=== PATIENT | male | born 1960 | race Caucasian/White ===

== ENCOUNTER 2016-10-15 15:20 | Emergency (ER) | payer SELFPAY ==
--- NOTE | 2016-10-15 16:17 | ER Document Report ---
HPI - HPI Patient complains to provider of: Medication refill Onset: Yesterday Quality of pain: No pain Pain Level: 0 Context: Patient presents emergency department with request for blood pressure medication refill. He reports he takes clonidine 0.2 mg 3 times a day. He presents with his medication bottle that is empty, last do yesterday. he reports he does not have the money to pay the urgent care to obtain a refill on his medication. He reports hes been taking the medication for a long time. Associated Symptoms: None Exacerbated by: Denies Relieved by: Denies Similar symptoms previously: Yes Recently seen / treated by doctor: No - DERM Skin Color: Normal Past Medical History - General Information source: Patient - Social History Smoking Status: Current Every Day Smoker Cigarette use (# per day): Yes Frequency of alcohol use: None Drug Abuse: None Family History: Hypertension - Past Medical History Cardiac Medical History: Reports: Hx Hypertension Pulmonary Medical History: Denies: Hx Tuberculosis Neurological Medical History: Denies: Hx Seizures Renal/ Medical History: Denies: Hx Peritoneal Dialysis Psychiatric Medical History: Denies: Hx Depression Past Surgical History: Reports: Hx Orthopedic Surgery - right hand, left knee - Immunizations Hx Diphtheria, Pertussis, Tetanus Vaccination: Yes Vertical Provider Document - CONSTITUTIONAL Agree With Documented VS: Yes Exam Limitations: No Limitations General Appearance: WD/WN, No Apparent Distress - INFECTION CONTROL TRAVEL OUTSIDE OF THE [place] IN LAST 30 DAYS: No - HEENT HEENT: Atraumatic, Normocephalic - NECK Neck: Normal Inspection, Supple. negative: Lymphadenopathy-Left, Lymphadenopathy-Right - RESPIRATORY Respiratory: Breath Sounds Normal, No Respiratory Distress O2 Sat by Pulse Oximetry: 96 - CARDIOVASCULAR Cardiovascular: Regular Rate, Regular Rhythm - MUSCULOSKELETAL/EXTREMETIES Musculoskeletal/Extremeties: MAEW, FROM - NEURO Level of Consciousness: Awake, Alert, Appropriate Motor/Sensory: No Motor Deficit - DERM Integumentary: Warm, Dry Course - Re-evaluation Re-evalutation: 10/15/16 16:24 Patient educated on the [facility]. We discussed the importance of monitoring his blood pressure and taking medications as prescribed. He verbalized understanding to all instructions. - Vital Signs Vital signs: Temp Pulse Resp BP Pulse Ox 97.8 F 55 L 18 150/91 H 96 10/15/16 15:49 10/15/16 15:49 10/15/16 15:49 10/15/16 15:49 10/15/16 15:49 Discharge - Discharge Clinical Impression: Medication refill, Elevated blood pressure reading Condition: Stable Disposition: HOME, SELF-CARE Instructions: Clonidine (Catapres) ([facility]) Additional Instructions: *You have been evaluated for medication refill, elevated blood pressure *Follow up with a primary care provider for further evaluation and refills *Take medication as prescribed *Return to ED for worsening condition, changes, needs Prescriptions: Clonidine HCl 0.2 mg PO TID #30 tablet Forms: Elevated Blood Pressure
[2016-10-15 16:37] VITALS: BP 119/86
== END 2016-10-15 16:37 | disposition home or self-care (01) ==
LOC: ER 15:20
DX: Z76.0 Encounter for issue of repeat prescription (principal); R03.0 Elevated blood-pressure reading, without diagnosis of hypertension; F17.210 Nicotine dependence, cigarettes, uncomplicated
CPT/HCPCS: 99281

== ENCOUNTER → 2016-12-07 | Outpatient (CLI) | payer OTHER ==
[2016-12-07 12:24] LABS: ABSOLUTE EOSINOPHILS # (AUTO) 0.1 10^3/uL (0.0-0.6); ABSOLUTE LYMPHOCYTES (AUTO) 2.1 10^3/uL (0.5-4.7); ABSOLUTE MONOCYTES (AUTO) 0.7 10^3/uL (0.1-1.4); ABSOLUTE NEUT (AUTO) 5.6 10^3/uL (1.7-8.2); BASOPHILS % (AUTO) 0.4 % (0-2); EOSINOPHILS % (AUTO) 1.2 % (0-6); HEMATOCRIT 46.8 % (37.9-51.0); HEMOGLOBIN 15.4 g/dL (13.5-17.0); HGB HCT DIFFERENCE -0.6; LYMPHOCYTES % (AUTO) 24.6 % (13-45); MEAN CORPUSCULAR HEMOGLOBIN 30.1 pg (27.0-33.4); MEAN CORPUSCULAR VOLUME 91 fl (80-97); MONOCYTES % (AUTO) 7.8 % (3-13); RED BLOOD COUNT 5.12 10^6/uL (4.35-5.55); RED CELL DISTRIBUTION WIDTH 13.3 % (11.5-14.0); WHITE BLOOD COUNT 8.5 10^3/uL (4.0-10.5)
--- NOTE | 2016-12-07 12:25 | RADIOLOGY REPORT (SQ) ---
EXAM DESCRIPTION: KNEE RIGHT 4 VIEWS COMPLETED DATE/TIME: 12/07/2016 11:53 am REASON FOR STUDY: PAIN IN RIGHT KNEE M25.561 PAIN IN RIGHT KNEE M25.562 PAIN IN LEFT KNEE COMPARISON: None. NUMBER OF VIEWS: Four views. TECHNIQUE: AP, lateral, and both oblique radiographic images acquired of the right knee. LIMITATIONS: None. FINDINGS: MINERALIZATION: Normal. BONES: No acute fracture or dislocation. No worrisome bone lesions. JOINT: No suprapatellar knee joint effusion. Mild diffuse chondrocalcinosis without significant join t space narrowing. SOFT TISSUES: No soft tissue swelling. No radio-opaque foreign body. OTHER: No other significant finding. IMPRESSION: Chondrocalcinosis. No significant joint space narrowing or bulky bony spurring TECHNICAL DOCUMENTATION: JOB ID: [id number] [employer]- All Rights Reserved
--- NOTE | 2016-12-07 12:27 | RADIOLOGY REPORT (SQ) ---
EXAM DESCRIPTION: KNEE LEFT 4 VIEWS COMPLETED DATE/TIME: 12/07/2016 11:53 am REASON FOR STUDY: PAIN IN LEFT KNEE M25.561 PAIN IN RIGHT KNEE M25.562 PAIN IN LEFT KNEE COMPARISON: None. NUMBER OF VIEWS: Four views. TECHNIQUE: AP, lateral, and both oblique radiographic images acquired of the left knee. LIMITATIONS: None. FINDINGS: MINERALIZATION: Normal. BONES: No acute fracture or dislocation. No worrisome bone lesions. JOINT: Small suprapatellar knee joint effusion. Medial and lateral compartment chondrocalcinosis wit h mild medial compartment bony spurring SOFT TISSUES: No soft tissue swelling. No radio-opaque foreign body. OTHER: No other significant finding. IMPRESSION: Small left suprapatellar knee joint effusion. Chondrocalcinosis. TECHNICAL DOCUMENTATION: JOB ID: [id number] [employer]- All Rights Reserved
[2016-12-07 12:48] LABS: ALANINE AMINOTRANSFERASE 34 U/L (21-72); ALBUMIN 4.1 g/dL (3.5-5.0); ALKALINE PHOSPHATASE 54 U/L (38-126); ANION GAP 9 (5-19); ASPARTATE AMINO TRANSFERASE 29 U/L (17-59); BILIRUBIN,DIRECT 0.3 mg/dL (0.0-0.4); BILIRUBIN,TOTAL 1.5 mg/dL (0.2-1.3); BLOOD UREA NITROGEN 18 mg/dL (7-20); CALCIUM 9.6 mg/dL (8.4-10.2); CARBON DIOXIDE 28 mmol/L (22-30); CHLORIDE 101 mmol/L (98-107); CHOLESTEROL 182.02 mg/dL (0-200); CREATININE RESULT 1.02 mg/dL (0.52-1.25); Direct HDL 52 mg/dL (>40); GLUCOSE 91 mg/dL (75-110); POTASSIUM 4.9 mmol/L (3.6-5.0); SODIUM 137.6 mmol/L (137-145); TRIGLYCERIDES 69 mg/dL (<150)
[2016-12-07 12:59] LABS: DIRECT LDL 121 mg/dL (<100)
== END ==
LOC: CCC 11:07
DX: Z00.00 Encounter for general adult medical examination without abnormal findings (principal); M25.561 Pain in right knee; M25.562 Pain in left knee; M25.462 Effusion, left knee; M11.161 Familial chondrocalcinosis, right knee
CPT/HCPCS: 36415; 80053; 80061; 83036; 84153; 84443; 85025

== ENCOUNTER 2017-02-06 02:54 | Emergency (ER) | payer SELFPAY ==
[2017-02-06] MEDS ORDERED: HYDROCODONE/ACETAMINOPHEN 5-325 MG TABLET PO ONE (03:47)
[2017-02-06] MEDS ORDERED: DEXAMETHASONE SOD PHOS INJ 10 MG/1 ML VIAL IM ONE (03:47)
[2017-02-06] MEDS ORDERED: KETOROLAC TROMETHAMINE 60 MG/2 ML SDV IM ONE (03:47)
--- NOTE | 2017-02-06 03:53 | ER Document Report ---
ED Neck/Back Problem - General Chief Complaint: Back Pain Stated Complaint: BACK PAIN Time Seen by Provider: 02/06/17 03:30 Notes: The patient is a 56-year-old male, past medical history prior back injury many years ago, presents with 3 days of bilateral low back pain and 1 day of tingling down the back of his left leg. He was lifting heavy objects recently. He denies difficulty walking, saddle anesthesia, history of IVDA, fevers, change in bowel or bladder, abdominal pain, chest pain or shortness of breath. TRAVEL OUTSIDE OF THE [place] IN LAST 30 DAYS: No - Related Data Allergies/Adverse Reactions: pantoprazole sodium [From Protonix] Adverse Reaction (Intermediate, Verified 05/13 03:16) Migraine Past Medical History - General Information source: Patient - Social History Smoking Status: Current Every Day Smoker Family History: Hypertension Patient has suicidal ideation: No Patient has homicidal ideation: No - Past Medical History Cardiac Medical History: Reports: Hx Hypertension Pulmonary Medical History: Denies: Hx Tuberculosis Neurological Medical History: Denies: Hx Seizures Renal/ Medical History: Denies: Hx Peritoneal Dialysis Psychiatric Medical History: Denies: Hx Depression Past Surgical History: Reports: Hx Orthopedic Surgery - right hand, left knee - Immunizations Hx Diphtheria, Pertussis, Tetanus Vaccination: Yes Review of Systems - Review of Systems Notes: REVIEW OF SYSTEMS: CONSTITUTIONAL: -fevers, -chills EENT: -eye pain, -difficulty swallowing, -nasal congestion CARDIOVASCULAR:-chest pain, -syncope. RESPIRATORY: -cough, -SOB GASTROINTESTINAL: -abdominal pain, - nausea, -vomiting, -diarrhea GENITOURINARY: -dysuria, -hematuria MUSCULOSKELETAL: +back pain, -neck pain SKIN: -rash or skin lesions. HEMATOLOGIC: -easy bruising or bleeding. LYMPHATIC: -swollen, enlarged glands. NEUROLOGICAL: -altered mental status or loss of consciousness, -headache, + tingling down back of left leg PSYCHIATRIC: -anxiety, -depression. ALL OTHER SYSTEMS REVIEWED AND NEGATIVE. Physical Exam - Vital signs Vitals: Temp Pulse Resp BP Pulse Ox 97.6 F 63 22 H 139/111 H 100 02/06/17 03:14 02/06/17 03:14 02/06/17 03:14 02/06/17 03:14 02/06/17 03:14 - Notes Notes: PHYSICAL EXAMINATION: GENERAL: Uncomfortable. HEAD: Atraumatic, normocephalic. EYES: Pupils equal round and reactive to light, extraocular movements intact, sclera anicteric, conjunctiva are normal. ENT: nares patent, oropharynx clear without exudates. Moist mucous membranes. NECK: Normal range of motion, supple without lymphadenopathy LUNGS: Breath sounds clear to auscultation bilaterally and equal. No wheezes rales or rhonchi. HEART: Regular rate and rhythm without murmurs ABDOMEN: Soft, nontender, normoactive bowel sounds. No guarding, no rebound. No masses appreciated. EXTREMITIES: Normal range of motion, no pitting or edema. No cyanosis. Strong distal pulses. BACK: Tenderness over left lower back, no midline tenderness. NEUROLOGICAL: Cranial nerves grossly intact. Normal speech, normal gait. Normal motor exams. PSYCH: Normal mood, normal affect. SKIN: Warm, Dry, normal turgor, no rashes or lesions noted. Course - Re-evaluation Re-evalutation: Patient presents with worsening low back pain with left sciatica symptoms. No red flag signs for low back pain. Will provide a multimodal approach to help his low back pain with follow-up his primary care physician. - Vital Signs Vital signs: Temp Pulse Resp BP Pulse Ox 97.6 F 63 22 H 139/111 H 100 02/06/17 03:14 02/06/17 03:14 02/06/17 03:14 02/06/17 03:14 02/06/17 03:14 Discharge - Discharge Clinical Impression: Back pain Qualifiers: Back pain location: low back pain Chronicity: unspecified Back pain laterality : left Sciatica presence: with sciatica Sciatica laterality: sciatica of left side Qualified Code(s): M54.42 - Lumbago with sciatica, left side Condition: Stable Disposition: HOME, SELF-CARE Additional Instructions: LOW BACK PAIN: Three out of every four people will have an episode of disabling back pain during their lifetime. Most commonly the pain is due to straining of the muscles and ligaments in the low back. Usual treatment includes: (1) Rest on a firm surface. Avoid lying on your stomach. (2) Ice pack the painful area. After a few days, gentle heat may be used intermittently to relax the area, or ice packs can be continued. (3) Medication may be needed -- muscle relaxers and antiinflammatory medicines are commonly used. (4) As the back improves, exercises are prescribed to strengthen the back and abdominal muscles. Your doctor will advise you on the proper care for your back at each stage in your recovery. You may be better in a few days -- or healing may take several weeks. If new symptoms of a "herniated disc" (radiation of pain, numbness, or tingling down the back of the leg or weakness in the leg) occur, you should be re-examined. Further testing may be necessary. PAIN MEDICATION INJECTION: You have received an injection of a pain medication. You should experience significant pain relief within 45 minutes. If this injection was a narcotic -- it will impair your judgement, slow your reaction time and make you sleepy (as well as relieve your pain). Narcotics also can cause nausea. You should not drive, work with machinery, or perform any task requiring mental alertness until all effects of the medication are gone -- six to eight hours. Do not take any alcohol, or sedatives, and do not take any other medication without checking with your physician. ORAL NARCOTIC MEDICATION: You have been given a prescription for pain control. This medication is a narcotic. It's best taken with food, as nausea can result if taken on an empty stomach. Don't operate machinery or drive within six hours of taking this medication. Do not combine this medicine with alcohol, or with any medication which can cause sedation (such as cold tablets or sleeping pills) unless you get permission from the physician. Narcotics tend to cause constipation. If possible, drink plenty of fluids and eat a diet high in fiber and fruits. Please be aware that prescription narcotics also have the potential for abuse. People become addicted to these medications because of the general sense of wellbeing that they induce. This feeling along with a significant reduction in tension, anxiety, and aggression provides a stimulating seductive quality to these drugs. Once your pain is under control, we encourage you to discard your unused narcotics. ICE PACKS: Apply ice packs frequently against the painful area. Many different schedules are recommended, such as "20 minutes on, 20 minutes off" or "one hour ice, two hours rest." If you need to work, you may need to go longer between ice treatments. You should plan to have the area ice packed AT LEAST one fourth of the time. The ice should be applied over the wrap, tape, or splint, or over a layer of cloth -- not directly against the skin. Some ice bags have a built-in cloth and can be put directly on the skin. WARM PACKS: After approximately two days, apply gentle heat (such as a heating pad or hot water bottle) for about 20 to 30 minutes about every two hours -- at least four times daily. Warmth and elevation will help you make a more rapid recovery , and will ease the pain considerably. Do not use HOT heat, and never apply heat for longer than 30 minutes. The continuous heat can invisibly damage skin and muscles -- even when no burn is seen on the surface. Damaged muscles can make you MORE sore. FOLLOW-UP CARE: If you have been referred to a physician for follow-up care, call the physician s office for an appointment as you were instructed or within the next two days. If you experience worsening or a significant change in your symptoms, notify the physician immediately or return to the Emergency Department at any time for re-evaluation. Prescriptions: Hydrocodone/Acetaminophen [Victor 5-325 mg Tablet] 1 tab PO Q6H PRN #10 tablet PRN Reason: Methocarbamol [Robaxin 500 mg Tablet] 500 mg PO Q4H PRN #15 tablet PRN Reason: Forms: Elevated Blood Pressure Referrals: SADA HARDY MD [ACTIVE STAFF] - Follow up as needed
[2017-02-06 04:34] VITALS: BP 139/94
== END 2017-02-06 04:32 | disposition home or self-care (01) ==
LOC: ER 02:54
DX: M54.42 Lumbago with sciatica, left side (principal); R20.2 Paresthesia of skin; I10 Essential (primary) hypertension; Z87.828 Personal history of other (healed) physical injury and trauma
CPT/HCPCS: 99283; 96372; J1885; J1100

== ENCOUNTER 2017-02-07 11:38 | Emergency (ER) | payer SELFPAY ==
[2017-02-07] MEDS ORDERED: MORPHINE SULFATE 10 MG/ML INJ IV ONE (12:04)
[2017-02-07] MEDS ORDERED: ONDANSETRON HCL INJ/PF 4 MG/2 ML SDV IV ONE (12:04)
--- NOTE | 2017-02-07 12:37 | ER Document Report ---
ED Neck/Back Problem - General Chief Complaint: Back Pain Stated Complaint: BACK AND LEFT LEG PAIN Time Seen by Provider: 02/07/17 11:50 Notes: The patient is a 56-year-old male, past medical history prior back injury many years ago, presents with 4days of mid low back pain and 2 day of tingling down the back of his left leg. He has hx/o intermittent back pain but has not had the radiculopathy. He was lifting heavy objects recently, working in the yard. He denies difficulty walking, saddle anesthesia, history of IVDA or fevers. pt does report a change in urination, feels like he pees the bed and has noted a change in his urinary flow. no change in bowel, no abdominal pain, chest pain or shortness of breath. pt was seen in ED yesterday for same. treated with [place] and Robaxin with no relief TRAVEL OUTSIDE OF THE [place] IN LAST 30 DAYS: No - HPI Patient complains to provider of: Pain Onset: Sudden Timing: Still present, Worse Pain Level: 5 Recent injury: No Associated symptoms: Constipation, Incontinence - feels like he pees the bed, change in urinary flow, Radiation to leg - left. denies: Abdominal pain, Fever Exacerbated by: Other - any movement Similar symptoms previously: Yes Recently seen / treated by doctor: Yes - Related Data Allergies/Adverse Reactions: pantoprazole sodium [From Protonix] Adverse Reaction (Intermediate, Verified 11:43) Migraine Past Medical History - General Information source: Patient - Social History Smoking Status: Never Smoker Chew tobacco use (# tins/day): No Frequency of alcohol use: None Drug Abuse: None Lives with: Family Family History: Hypertension - Past Medical History Cardiac Medical History: Reports: Hx Hypertension Pulmonary Medical History: Denies: Hx Tuberculosis Neurological Medical History: Denies: Hx Seizures Renal/ Medical History: Denies: Hx Peritoneal Dialysis Psychiatric Medical History: Denies: Hx Depression Past Surgical History: Reports: Hx Orthopedic Surgery - right hand, left knee - Immunizations Hx Diphtheria, Pertussis, Tetanus Vaccination: Yes Review of Systems - Review of Systems Constitutional: No symptoms reported EENT: No symptoms reported Cardiovascular: No symptoms reported Respiratory: No symptoms reported Gastrointestinal: No symptoms reported Genitourinary: No symptoms reported Male Genitourinary: No symptoms reported Musculoskeletal: See HPI, Back pain Skin: No symptoms reported Hematologic/Lymphatic: No symptoms reported Neurological/Psychological: No symptoms reported -: Yes All other systems reviewed and negative Physical Exam - Vital signs Vitals: Temp Pulse Resp Pulse Ox 97.9 F 83 20 99 02/07/17 11:44 02/07/17 11:44 02/07/17 11:44 02/07/17 11:44 Interpretation: Normal - General General appearance: Appears well, Alert - HEENT Head: Normocephalic, Atraumatic Eyes: Normal Pupils: PERRL - Respiratory Respiratory status: No respiratory distress Chest status: Nontender Breath sounds: Normal Chest palpation: Normal - Cardiovascular Rhythm: Regular Heart sounds: Normal auscultation Murmur: No - Abdominal Inspection: Normal Distension: No distension Bowel sounds: Normal Tenderness: Nontender Organomegaly: No organomegaly - Rectal Tenderness: Yes - normal rectal tone Hemorrhoids: External - Back Back: Tender, Vertebra tenderness - L5-S2 area. + left SI tenderness - Extremities General upper extremity: Normal inspection, Nontender, Normal color, Normal ROM , Normal temperature General lower extremity: Normal inspection, Nontender, Normal color, Normal ROM , Normal temperature, Normal weight bearing. No: Jennie's sign - Neurological Neuro grossly intact: Yes Cognition: Normal Orientation: AAOx4 [place] Coma Scale Eye Opening: Spontaneous [place] Coma Scale Verbal: Oriented [place] Coma Scale Motor: Obeys Commands [place] Coma Scale Total: 15 Speech: Normal Motor strength normal: LUE, RUE, LLE, RLE Sensory: Normal - Psychological Associated symptoms: Normal affect, Normal mood - Skin Skin Temperature: Warm Skin Moisture: Dry Skin Color: Normal Course - Re-evaluation Re-evalutation: 02/07/17 12:47 pt has no neurologic findings on exam. normal rectal tone. due to the intensity of pain, the new radicular symptoms and urinary dysfunction, will order MRI to further evaluate. pt medicated for pain prior to MRI exam 02/07/17 14:15 MRI report reviewed: Disc herniation with superior migration of the extruded fragment at L3-4. Results reviewed with patient and spouse. pt reports pain slightly improved. able to walk, pt has urinated in ED. pt is stable for discharge and f/u with primary care for proper referral. pt agreeable with plan and stable for discharge - Vital Signs Vital signs: Temp Pulse Resp BP Pulse Ox 97.9 F 83 20 99 02/07/17 11:44 02/07/17 11:44 02/07/17 11:44 02/07/17 11:44 Discharge - Discharge Clinical Impression: Low back pain with sciatica Qualifiers: Chronicity: acute Back pain laterality: midline Sciatica laterality: sciatica of left side Qualified Code(s): M54.42 - Lumbago with sciatica, left side Condition: Stable Disposition: HOME, SELF-CARE Additional Instructions: You have several bulging discs and 1 herniated disc in your lumbar spine Take medications as prescribed, but you will need to follow up with your primary care for further pain management and proper referral Prescriptions: Diazepam [Valium 5 Mg Tablet] 5 mg PO TID #20 tablet Ibuprofen [Motrin 800 Mg Tablet] 800 mg PO Q6H #20 tablet Oxycodone HCl/Acetaminophen [Percocet 10-325 Mg Tablet] 1 each PO Q6H PRN #20 tablet PRN Reason: Forms: Elevated Blood Pressure
--- NOTE | 2017-02-07 14:01 | RADIOLOGY REPORT (SQ) ---
EXAM DESCRIPTION: MRI LUMBAR SPINE WITHOUT COMPLETED DATE/TIME: 02/07/2017 1:36 pm REASON FOR STUDY: low back pain with sciatica w/ urinary dysfunction COMPARISON: None. TECHNIQUE: Sagittal and Axial imaging includes T1, T2, STIR and gradient echo sequences. Coronal T2/ HASTE imaging. LIMITATIONS: None. FINDINGS: VISUALIZED UPPER ABDOMEN: Limited evaluation. No acute or suspicious findings suggested. 1 cm left upper pole renal cortical cyst. SEGMENTATION: No transitional anatomy. The lowest well-developed disc space is labeled L5-S1. ALIGNMENT: Anatomic. VERTEBRAE: Intact. BONE MARROW: Normal. No marrow replacement or reactive changes. DISC SIGNAL: Decreased T2 weighted intervertebral disc signal at L2-3, L4-5, and L5-S1 POSTERIOR ELEMENTS: Generally intact. No pars defect evident. HARDWARE: None in the spine. CORD AND CONUS: Normal in size and signal intensity. Conus at the L1-2 level. There is a benign and thin rim lipoma along the leftward aspect of the conus, best shown on axial series 8 images 4 through 7. This has appropriate signal dropout on fat saturated images and is a benign finding SOFT TISSUES: No aortic aneurysm seen. No bulky retroperitoneal adenopathy or mass. No paraspinal mas s or fluid. T11-12: No central or foraminal stenosis. T12-L1: No central or foraminal stenosis. L1-L2: No central or foraminal stenosis. Moderate bilateral facet and ligament hypertrophy L2-L3: Mild diffuse posterior disc bulging is present with moderate bilateral facet and ligament hype rtrophy. No central stenosis. Mild bilateral inferior foraminal narrowing without exiting L2 nerve root impingement L3-L4: A moderate to large left paracentral disc herniation is present at L3-4, with superior migrati on of the extruded fragment. This flattens the thecal sac at the takeoff of the left proximal L4 ner ve root in the lateral recess, and causes moderate to high-grade left L3-4 foraminal narrowing withou t exiting L3 nerve root impingement. These changes are best shown on axial T2 images 14-18, and sagi ttal images 9-11. Elsewhere at L3-4, broad diffuse posterior disc bulging and moderate bilateral facet and ligament hyp ertrophy causes mild central canal stenosis with flattening of the thecal sac into a triangular shape . There is moderate right foraminal narrowing at L3-4 without definite exiting right L3 nerve root i mpingement. L4-L5: Broad diffuse posterior disc bulging left greater than right, and bulky bilateral facet and li gament hypertrophy causes mild central canal stenosis and asymmetric flattening of the thecal sac at the takeoff of the left proximal L5 nerve root in the lateral recess. These changes are best shown o n axial T2 images 24-27. Elsewhere at L4-5, there is mild right and high-grade left foraminal narrowing. There is effacement of the fat around the exiting left L4 nerve root best shown on sagittal T2 image 13. L5-S1: Minimal posterior disc bulging, mild bilateral facet and ligament hypertrophy. No central or foraminal encroachment. SACRUM: Visualized upper sacrum intact. OTHER: No other significant findings. IMPRESSION: Disc herniation with superior migration of the extruded fragment at L3-4 as above. Significant degenerative changes at the L4-5 disc level as well TECHNICAL DOCUMENTATION: JOB ID: [id number] [employer]- All Rights Reserved
[2017-02-07] MEDS ORDERED: DIAZEPAM INJ 10 MG/2 ML DISP.SYRIN IV ONE (14:02)
[2017-02-07 14:35] VITALS: BP 148/70
== END 2017-02-07 14:25 | disposition home or self-care (01) ==
LOC: ER 11:38
DX: M54.42 Lumbago with sciatica, left side (principal); M54.9 Dorsalgia, unspecified; M79.605 Pain in left leg
CPT/HCPCS: 99284; 96374; 96375; 72148; J3360; J2270; J2405

== ENCOUNTER 2017-11-25 06:08 | Emergency (ER) | payer SELFPAY ==
[2017-11-25 07:42] LABS: ABSOLUTE LYMPHOCYTES (AUTO) 0.7 10^3/uL (0.5-4.7); ABSOLUTE MONOCYTES (AUTO) 0.4 10^3/uL (0.1-1.4); ABSOLUTE NEUT (AUTO) 11.4 10^3/uL (1.7-8.2); BASOPHILS % (AUTO) 0.2 % (0-2); HEMATOCRIT 46.9 % (37.9-51.0); HEMOGLOBIN 15.9 g/dL (13.5-17.0); LYMPHOCYTES % (AUTO) 5.8 % (13-45); MEAN CORPUSCULAR HEMOGLOBIN 30.6 pg (27.0-33.4); MEAN CORPUSCULAR HGB CONC 33.9 g/dL (32.0-36.0); MEAN CORPUSCULAR VOLUME 90 fl (80-97); PLATELET COUNT 150 10^3/uL (150-450); RED CELL DISTRIBUTION WIDTH 14.2 % (11.5-14.0); TOTAL CELLS COUNTED % (AUTO) 100 %; WHITE BLOOD COUNT 12.5 10^3/uL (4.0-10.5)
[2017-11-25] MEDS ORDERED: NORMAL SALINE 1000 ML 1,000 ML IV ONE (07:57)
[2017-11-25] MEDS ORDERED: FENTANYL CITRATE INJ/PF 100 MCG/2 ML AMPUL IV ONE (07:59)
[2017-11-25] MEDS ORDERED: PROCHLORPERAZINE EDISYLATE INJ 10 MG/2 ML VIAL IV ONE (07:59)
--- NOTE | 2017-11-25 08:00 | ER Document Report ---
ED GI/ - General Chief Complaint: Vomiting/Diarrhea Stated Complaint: NAUSEA AND VOMITING Time Seen by Provider: 11/25/17 07:30 Mode of Arrival: Ambulatory Information source: Patient Notes: Patient presents complaining of abdominal pain with nausea vomiting and diarrhea that started him. Patient states he is vomited about 4 or 5 times and had a similar number diarrhea bowel movements as well. Patient denies any urinary symptoms. Patient moaning and holding his abdomen. TRAVEL OUTSIDE OF THE [place] IN LAST 30 DAYS: No - HPI Patient complains to provider of: Abdominal pain, Diarrhea, Vomiting Onset: Yesterday Timing/Duration: Gradual Quality of pain: Sharp Pain Level: 5 Location: Other - Generalized abdomen Associated symptoms: Diarrhea, Nausea, Vomiting. denies: Dysuria, Fever, Urinary hesitancy, Urinary frequency, Urinary retention, Urinary urgency Exacerbated by: Denies Relieved by: Denies Similar symptoms previously: No Recently seen / treated by doctor: No - Related Data Allergies/Adverse Reactions: pantoprazole sodium [From Protonix] Adverse Reaction (Intermediate, Verified 11:43) Migraine Past Medical History - General Information source: Patient - Social History Smoking Status: Current Every Day Smoker Chew tobacco use (# tins/day): No Frequency of alcohol use: Occasional Drug Abuse: None Occupation: None Lives with: Spouse/Significant other Family History: Hypertension Patient has suicidal ideation: No Patient has homicidal ideation: No - Past Medical History Cardiac Medical History: Reports: Hx Hypertension Pulmonary Medical History: Denies: Hx Tuberculosis Neurological Medical History: Denies: Hx Seizures Renal/ Medical History: Denies: Hx Peritoneal Dialysis Psychiatric Medical History: Denies: Hx Depression Past Surgical History: Reports: Hx Orthopedic Surgery - right hand, left knee - Immunizations Hx Diphtheria, Pertussis, Tetanus Vaccination: Yes Review of Systems - Review of Systems Constitutional: No symptoms reported. denies: Fever, Recent illness EENT: No symptoms reported Cardiovascular: No symptoms reported. denies: Chest pain Respiratory: No symptoms reported. denies: Cough, Short of breath Gastrointestinal: Abdominal pain, Diarrhea, Nausea, Vomiting. denies: Constipation, Blood streaked bowels, Poor appetite, Black stools, Rectal bleeding Genitourinary: No symptoms reported. denies: Dysuria, Flank pain Male Genitourinary: No symptoms reported Musculoskeletal: No symptoms reported. denies: Back pain Skin: No symptoms reported Hematologic/Lymphatic: No symptoms reported Neurological/Psychological: No symptoms reported Physical Exam - Vital signs Vitals: Temp Pulse Resp BP Pulse Ox 97.7 F 49 L 22 H 168/95 H 100 11/25/17 06:16 11/25/17 06:16 11/25/17 06:16 11/25/17 06:16 11/25/17 06:16 - General General appearance: Appears well, Alert - HEENT Head: Normocephalic Eyes: Normal Nasal: Normal Mouth/Lips: Normal Mucous membranes: Normal Neck: Normal, Supple. No: Lymphadenopathy - Respiratory Respiratory status: No respiratory distress Chest status: Nontender Breath sounds: Normal. No: Rales, Rhonchi, Stridor, Wheezing Chest palpation: Normal - Cardiovascular Rhythm: Regular Heart sounds: S1 appreciated, S2 appreciated Murmur: No - Abdominal Inspection: Normal Distension: No distension Tenderness: Tender - periumbilical Organomegaly: No organomegaly Notes: Patient with audible pulse with stethoscope to epigastric, left upper quadrant, left lower quadrant of abdomen, pulse able to be felt with light palpation of abdomen. - Back Back: Normal, Nontender. No: CVA tenderness - Extremities General upper extremity: Normal inspection, Normal ROM General lower extremity: Normal inspection, Normal ROM - Neurological Neuro grossly intact: Yes Cognition: Normal Waterman Coma Scale Eye Opening: Spontaneous Nando Coma Scale Verbal: Oriented Waterman Coma Scale Motor: Obeys Commands Nando Coma Scale Total: 15 - Psychological Associated symptoms: Normal affect, Normal mood - Skin Skin Temperature: Warm Skin Color: Normal Course - Re-evaluation Re-evalutation: 11/25/17 08:00 Dr. Ibarra to bedside for exam, bedside ultrasound performed. Advises obtaining CTA imaging on patient. 11/25/17 10:24 Patient complains of continued abdominal cramping. No emesis while here. CT scan reports reviewed. No concern for any bowel obstruction, perforation, AAA, or dissection. Patient presents with abdominal pain without signs of peritonitis or other life-threatening or serious etiology. Patient appears stable for discharge and has been instructed to return immediately if the symptoms worsen in any way, or in 8-12 hours if not improved for reevaluation. The patient has been instructed to return if the symptoms worsen or change in any way. - Vital Signs Vital signs: Temp Pulse Resp BP Pulse Ox 98.9 F 49 L 16 167/84 H 99 11/25/17 10:43 11/25/17 06:16 11/25/17 10:00 11/25/17 10:43 11/25/17 10:00 - Laboratory Result Diagrams: 11/25/17 07:32 11/25/17 07:32 Laboratory results interpreted by me: 11/25/17 11/25/17 11/25/17 07:32 07:32 09:15 WBC 12.5 H RDW 14.2 H Seg Neutrophils % 91.0 H Lymphocytes % 5.8 L Absolute Neutrophils 11.4 H Sodium 145.1 H Glucose 155 H Total Bilirubin 1.4 H Urine Glucose (UA) 50 H Urine Ketones 20 H 11/25/17 10:25 Labs- Entire Visit 11/25/17 11/25/17 11/25/17 07:32 07:32 09:15 WBC 12.5 H RBC 5.20 Hgb 15.9 Hct 46.9 MCV 90 MCH 30.6 MCHC 33.9 RDW 14.2 H Plt Count 150 Seg Neutrophils % 91.0 H Lymphocytes % 5.8 L Monocytes % 3.0 Eosinophils % 0.0 Basophils % 0.2 Absolute Neutrophils 11.4 H Absolute Lymphocytes 0.7 Absolute Monocytes 0.4 Absolute Eosinophils 0.0 Absolute Basophils 0.0 Sodium 145.1 H Potassium 4.5 Chloride 105 Carbon Dioxide 26 Anion Gap 14 BUN 20 Creatinine 0.90 Est GFR ( Amer) > 60 Est GFR (Non-Af Amer) > 60 Glucose 155 H Calcium 9.9 Total Bilirubin 1.4 H Direct Bilirubin 0.2 Neonat Total Bilirubin Not Reportable Neonat Direct Bilirubin Not Reportable Neonat Indirect Bili Not Reportable AST 20 ALT 22 Alkaline Phosphatase 53 Total Protein 7.0 Albumin 4.3 Lipase 41.4 Urine Color YELLOW Urine Appearance CLEAR Urine pH 9.0 Ur Specific [place] 1.031 Urine Protein NEGATIVE Urine Glucose (UA) 50 H Urine Ketones 20 H Urine Blood NEGATIVE Urine Nitrite NEGATIVE Urine Bilirubin NEGATIVE Urine Urobilinogen NEGATIVE Ur Leukocyte Esterase NEGATIVE Urine WBC (Auto) 2 Urine RBC (Auto) 9 Urine Ascorbic Acid NEGATIVE - Diagnostic Test Radiology reviewed: Reports reviewed Discharge - Discharge Clinical Impression: Nausea vomiting and diarrhea Abdominal pain Qualifiers: Abdominal location: unspecified location Qualified Code(s): R10.9 - Unspecified abdominal pain Condition: Stable Disposition: HOME, SELF-CARE Instructions: Abdominal Pain ([facility]), Antinausea Medication ([facility]), Antispasmodics ([facility]), Diarrhea, Nonspecific ([facility]), Intravenous (IV) Fluids ([facility]) , Vomiting ([facility]) Additional Instructions: Return immediately for any new or worsening symptoms Followup with your primary care provider, call tomorrow to make a followup appointment Stay well-hydrated Prescriptions: Dicyclomine HCl [Bentyl 20 mg Tablet] 20 mg PO QID #20 tablet Ondansetron HCl [Zofran 4 mg Tablet] 1 - 2 tab PO Q6 PRN #15 tablet PRN Reason: Referrals: [facility] [Provider Group] - Follow up as needed [facility] [Provider Group] - Follow up as needed
[2017-11-25 08:10] LABS: ALANINE AMINOTRANSFERASE 22 U/L (21-72); ALBUMIN 4.3 g/dL (3.5-5.0); ALKALINE PHOSPHATASE 53 U/L (38-126); ANION GAP 14 (5-19); ASPARTATE AMINO TRANSFERASE 20 U/L (17-59); BILIRUBIN,DIRECT 0.2 mg/dL (0.0-0.4); BILIRUBIN,TOTAL 1.4 mg/dL (0.2-1.3); BLOOD UREA NITROGEN 20 mg/dL (7-20); CALCIUM 9.9 mg/dL (8.4-10.2); CARBON DIOXIDE 26 mmol/L (22-30); CHLORIDE 105 mmol/L (98-107); GLUCOSE 155 mg/dL (75-110); LIPASE 41.4 U/L (23-300); POTASSIUM 4.5 mmol/L (3.6-5.0); SODIUM 145.1 mmol/L (137-145)
--- NOTE | 2017-11-25 09:32 | RADIOLOGY REPORT (SQ) ---
EXAM DESCRIPTION: CTA CHEST; CTA ABDOMEN; CTA PELVIS COMPLETED DATE/TIME: 11/25/2017 8:46 am REASON FOR STUDY: Eval aneurysm rupture abd pain COMPARISON: None. CONTRAST TYPE AND DOSE: contrast/concentration: Isovue 370.00 mg/ml; Total Contrast Delivered: 100.0 ml; Total Saline Delivered: 90.0 ml RENAL FUNCTION: Deferred by the emergency room attending physician TECHNIQUE: CT angio of the chest performed using helical scanning technique with dynamic intravenous contrast injection. Images reviewed with lung, soft tissue and bone windows. Reconstructed coronal and sagittal MPR images reviewed. All images stored on PACS. CT angio of the abdomen and pelvis performed with intravenous and without oral contrastusing helical scanning technique with dynamic intravenous contrast injection. Images reviewed with lung, soft tiss ue and bone windows. Reconstructed coronal and sagittal MPR images reviewed. Delayed images for milton luation of the urinary system also acquired and evaluated. All images stored on PACS. All CT scanners at this facility use dose modulation, iterative reconstruction, and/or weight based d osing when appropriate to reduce radiation dose to as low as reasonably achievable (ALARA). [facility]: Dose Right [facility]: CareDose [facility]: Dose Right [facility]: Teradose 4D [facility]: [employer] RADIATION DOSE: CT Rad equipment meets quality standard of care and radiation dose reduction techniq ues were employed. CTDIvol: 9.1 - 25.5 mGy. DLP: 1380 mGy-cm. . LIMITATIONS: None. FINDINGS: CHEST: LUNGS AND PLEURA: No opacities, nodules, masses. No pneumothorax. No effusions. HILAR AND MEDIASTINAL STRUCTURES: No identified masses or abnormal nodes. HEART AND VASCULAR STRUCTURES: No thoracic aortic aneurysm or dissection. No central pulmonary embol i. No pericardial effusion. HARDWARE: None. THYROID AND OTHER SOFT TISSUES: No masses. No adenopathy. BONES: No significant finding. OTHER: No other significant finding. Multiplanar maximum intensity projected images confirm the above findings. ABDOMEN AND PELVIS: LIVER: Normal size. No masses. No dilated ducts. Benign 1.5 cm cyst left lobe liver. SPLEEN: Normal size. No focal lesions. PANCREAS: No masses. No significant calcifications. No adjacent inflammation or peripancreatic fluid collections. Pancreatic duct not dilated. GALLBLADDER: No identified stones by CT criteria. No inflammatory changes to suggest cholecystitis. ADRENAL GLANDS: No significant masses or asymmetry. RIGHT KIDNEY AND URETER: No solid masses. No significant calcification. No hydronephrosis or hydroure ter. LEFT KIDNEY AND URETER: No solid masses. No significant calcification. No hydronephrosis or hydrouret er. AORTA AND VESSELS: No abdominal aortic aneurysm. No no abdominal aortic dissection. Renal arteries, S MA, celiac without stenosis. RETROPERITONEUM: No retroperitoneal adenopathy, hemorrhage or masses. BOWEL AND PERITONEAL CAVITY: No free intraperitoneal air or fluid. No CT evidence of bowel obstructi on. Few scattered colonic diverticuli are present. No masses or inflammatory changes. No gross laura toneal masses. APPENDIX: Normal. ABDOMINAL WALL: No masses. No hernias. PELVIS: No mass or free fluid. Normal bladder. BONES: No acute findings. Mild degenerative changes lower lumbar spine. OTHER: Results discussed with Dr. Ibarra Multiplanar maximum intensity projected images confirm the above findings. IMPRESSION: NORMAL CTA OF THE CHEST WITH IV CONTRAST. NORMAL CTA OF THE ABDOMEN AND PELVIS WITH ORAL AND INTRAVENOUS CONTRAST. TECHNICAL DOCUMENTATION: JOB ID: [id number] Quality ID # [id number]: Final reports with documentation of one or more dose reduction techniques (e.g., Au tomated exposure control, adjustment of the mA and/or kV according to patient size, use of iterative reconstruction technique) 2010 [employer]- All Rights Reserved Reading location - IP/workstation name: [id number]
[2017-11-25 09:37] LABS: APPEARANCE,URINE CLEAR; BILIRUBIN,URINE NEGATIVE (NEGATIVE); COLOR,URINE YELLOW; GLUCOSE, URINE 50 mg/dL (NEGATIVE); KETONES,URINE 20 mg/dL (NEGATIVE); LEUKOCYTE ESTERASE,URINE NEGATIVE (NEGATIVE); NITRITE,URINE NEGATIVE (NEGATIVE); PROTEIN,URINE NEGATIVE (NEGATIVE); URINE SPECIFIC GRAVITY 1.031; UROBILINOGEN,URINE NEGATIVE mg/dL (<2.0)
[2017-11-25] MEDS ORDERED: ONDANSETRON 4 MG TAB.RAPDIS PO ONE (10:22)
[2017-11-25] MEDS ORDERED: DICYCLOMINE HCL 20 MG TABLET PO ONE (10:23)
[2017-11-25 10:44] VITALS: BP 167/84
== END 2017-11-25 10:44 | disposition home or self-care (01) ==
LOC: ER 06:08
DX: R11.2 Nausea with vomiting, unspecified (principal); R19.7 Diarrhea, unspecified; R10.9 Unspecified abdominal pain; F17.200 Nicotine dependence, unspecified, uncomplicated; I10 Essential (primary) hypertension
CPT/HCPCS: 99284; 36415; 83690; 85025; 80053; 81001; 71275; 74175; 72191; J3490; S0119; J3010; J0780; J7030

== ENCOUNTER 2017-12-05 20:11 | Emergency (ER) | payer SELFPAY ==
[2017-12-05] MEDS ORDERED: NORMAL SALINE 1000 ML 1,000 ML IV ONE (21:17)
[2017-12-05 21:26] LABS: ABSOLUTE BASOPHILS # (AUTO) 0.1 10^3/uL (0.0-0.2); ABSOLUTE EOSINOPHILS # (AUTO) 0.3 10^3/uL (0.0-0.6); ABSOLUTE LYMPHOCYTES (AUTO) 5.6 10^3/uL (0.5-4.7); BASOPHILS % (AUTO) 0.6 % (0-2); HEMOGLOBIN 12.2 g/dL (13.5-17.0); LYMPHOCYTES % (AUTO) 43.5 % (13-45); MEAN CORPUSCULAR HEMOGLOBIN 30.8 pg (27.0-33.4); MEAN CORPUSCULAR HGB CONC 33.9 g/dL (32.0-36.0); MEAN CORPUSCULAR VOLUME 91 fl (80-97); MONOCYTES % (AUTO) 7.5 % (3-13); PLATELET COUNT 207 10^3/uL (150-450); RED BLOOD COUNT 3.97 10^6/uL (4.35-5.55); RED CELL DISTRIBUTION WIDTH 14.2 % (11.5-14.0); SEGMENTED NEUTROPHILS % (AUTO) 46.4 % (42-78); TOTAL CELLS COUNTED % (AUTO) 100 %; WHITE BLOOD COUNT 12.9 10^3/uL (4.0-10.5)
[2017-12-05 21:50] LABS: ALANINE AMINOTRANSFERASE 23 U/L (21-72); ALBUMIN 3.2 g/dL (3.5-5.0); ALKALINE PHOSPHATASE 37 U/L (38-126); ANION GAP 9 (5-19); ASPARTATE AMINO TRANSFERASE 19 U/L (17-59); BILIRUBIN,DIRECT 0.3 mg/dL (0.0-0.4); BILIRUBIN,TOTAL 0.8 mg/dL (0.2-1.3); BLOOD UREA NITROGEN 23 mg/dL (7-20); CALCIUM 8.9 mg/dL (8.4-10.2); CARBON DIOXIDE 25 mmol/L (22-30); CHLORIDE 106 mmol/L (98-107); GLUCOSE 109 mg/dL (75-110); POTASSIUM 4.1 mmol/L (3.6-5.0); SODIUM 139.7 mmol/L (137-145); TOTAL PROTEIN 5.6 g/dL (6.3-8.2)
--- NOTE | 2017-12-05 21:50 | EKG REPORT ---
SEVERITY:- OTHERWISE NORMAL ECG - SINUS RHYTHM BORDERLINE LEFT AXIS DEVIATION : Confirmed by: Stephanie Leung MD 05-Dec-2017 21:49:47
[2017-12-05] MEDS ORDERED: NORMAL SALINE 1000 ML 1,000 ML IV PRN (22:04)
--- NOTE | 2017-12-05 22:08 | ER Document Report ---
ED General - General Chief Complaint: Bloody Stools Stated Complaint: BLOOD IN STOOL Time Seen by Provider: 12/05/17 21:07 Mode of Arrival: Ambulatory Information source: Patient, Relative Notes: 57-year-old male with hypertension, hemorrhoids presents with complaint of abdominal discomfort, and rectal bleeding. Patient states that yesterday he experienced some abdominal cramping which was shortly followed by his first bloody bowel movement. He states he had a sudden urge to have a bowel movement and when he did the toilet was full of bright red blood and clots. He states that approximately every 30 minutes since that time he has had bleeding from his rectum. Patient also reports dark stool. Patient denies prior similar symptoms. He has undergone recent hemorrhoid banding with Dr. Azul 2 weeks ago. Patient has underwent intermittent banding without complication. TRAVEL OUTSIDE OF THE [place] IN LAST 30 DAYS: No - HPI Onset: Yesterday Onset/Duration: Gradual Quality of pain: Achy Severity: Mild Associated symptoms: Nausea, Sweating Exacerbated by: Denies Relieved by: Denies Similar symptoms previously: No Recently seen / treated by doctor: Yes - Related Data Allergies/Adverse Reactions: pantoprazole sodium [From Protonix] Adverse Reaction (Intermediate, Verified 04/14 22:32) Migraine Past Medical History - General Information source: Patient, Parent - Social History Smoking Status: Never Smoker Frequency of alcohol use: None Drug Abuse: None Lives with: Spouse/Significant other Family History: Reviewed & Not Pertinent, Hypertension Patient has suicidal ideation: No Patient has homicidal ideation: No - Past Medical History Cardiac Medical History: Reports: Hx Hypertension Pulmonary Medical History: Denies: Hx Tuberculosis Neurological Medical History: Denies: Hx Seizures Renal/ Medical History: Denies: Hx Peritoneal Dialysis Psychiatric Medical History: Denies: Hx Depression Past Surgical History: Reports: Hx Orthopedic Surgery - right hand, left knee - Immunizations Hx Diphtheria, Pertussis, Tetanus Vaccination: Yes Review of Systems - Review of Systems Notes: REVIEW OF SYSTEMS: CONSTITUTIONAL : Denies fever, chills, or sweats. Denies recent illness. Denies weight loss, recent hospitalizations. EENT: Denies visual changes, eye pain. Denies nasal or sinus congestion or discharge. Denies sore throat, oral lesions, difficulty swallowing. CARDIOVASCULAR: Denies chest pain. Denies palpitations. Denies lower extremity edema. RESPIRATORY: Denies cough, cold, or chest congestion. Denies shortness of breath, wheezing. GASTROINTESTINAL: Denies abdominal distention. Denies vomiting, or diarrhea. Denies blood in vomitus, Denies black, tarry stools. Denies constipation. GENITOURINARY: Denies difficulty urinating, painful urination, frequency, blood in urine, or vaginal discharge. MUSCULOSKELETAL: Denies back or neck pain or stiffness. Denies joint pain or swelling. SKIN: Denies rash, lesions or sores. HEMATOLOGIC : Denies easy bruising or bleeding. LYMPHATIC: Denies swollen glands. NEUROLOGICAL: Denies confusion or altered mental status. Denies passing out or loss of consciousness. Denies dizziness or lightheadedness. Denies headache. Denies weakness or paralysis. Denies problems difficulty with ambulation, slurred speech. Denies sensory loss, numbness, or tingling. Denies seizures. PSYCHIATRIC: Denies anxiety or stress. Denies depression, suicidal ideation, or homicidal ideation. Denies visual or auditory hallucinations. Physical Exam - Vital signs Vitals: Temp Pulse Resp BP Pulse Ox 97.8 F 87 18 155/89 H 96 12/05/17 20:21 12/05/17 20:21 12/05/17 20:21 12/05/17 20:21 12/05/17 20:21 - Notes Notes: PHYSICAL EXAMINATION: GENERAL: Diaphoretic, ill-appearing, pale HEAD: Atraumatic, normocephalic. EYES: Pupils equal round and reactive to light, extraocular movements intact, sclera anicteric, conjunctiva are normal. ENT: Nares patent, oropharynx clear without exudates. Moist mucous membranes. NECK: Normal range of motion, supple without lymphadenopathy LUNGS: Breath sounds clear to auscultation bilaterally and equal. No wheezes rales or rhonchi. HEART: Regular rate and rhythm without murmurs ABDOMEN: Soft, nontender, nondistended abdomen. No guarding, no rebound. No masses appreciated. rectal: Active rectal bleeding, bright red. Musculoskeletal: Normal range of motion, no pitting or edema. No cyanosis. NEUROLOGICAL: Cranial nerves grossly intact. Normal speech, normal gait. Normal sensory, motor exams PSYCH: Normal mood, normal affect. SKIN: Warm, Dry, normal turgor, no rashes or lesions noted. Course - Re-evaluation Re-evalutation: 12/05/17 22:59 Laboratory 12/05/17 12/05/17 12/05/17 21:04 21:04 21:04 WBC 12.9 H RBC 3.97 L Hgb 12.2 L Hct 36.0 L MCV 91 MCH 30.8 MCHC 33.9 RDW 14.2 H Plt Count 207 Seg Neutrophils % 46.4 Lymphocytes % 43.5 Monocytes % 7.5 Eosinophils % 2.0 Basophils % 0.6 Absolute Neutrophils 6.0 Absolute Lymphocytes 5.6 H Absolute Monocytes 1.0 Absolute Eosinophils 0.3 Absolute Basophils 0.1 PT INR APTT Sodium 139.7 Potassium 4.1 Chloride 106 Carbon Dioxide 25 Anion Gap 9 BUN 23 H Creatinine 1.00 Est GFR ( Amer) > 60 Est GFR (Non-Af Amer) > 60 Glucose 109 Calcium 8.9 Total Bilirubin 0.8 Direct Bilirubin 0.3 Neonat Total Bilirubin Not Reportable Neonat Direct Bilirubin Not Reportable Neonat Indirect Bili Not Reportable AST 19 ALT 23 Alkaline Phosphatase 37 L CK-MB (CK-2) Cancelled Troponin I Cancelled Total Protein 5.6 L Albumin 3.2 L Blood Type Antibody Screen Crossmatch 12/05/17 12/05/17 12/05/17 21:04 21:14 21:50 WBC RBC Hgb Hct MCV MCH MCHC RDW Plt Count Seg Neutrophils % Lymphocytes % Monocytes % Eosinophils % Basophils % Absolute Neutrophils Absolute Lymphocytes Absolute Monocytes Absolute Eosinophils Absolute Basophils PT Cancelled 15.8 H INR Cancelled 1.20 APTT Cancelled 24.8 Sodium Potassium Chloride Carbon Dioxide Anion Gap BUN Creatinine Est GFR ( Amer) Est GFR (Non-Af Amer) Glucose Calcium Total Bilirubin Direct Bilirubin Neonat Total Bilirubin Neonat Direct Bilirubin Neonat Indirect Bili AST ALT Alkaline Phosphatase CK-MB (CK-2) Troponin I Total Protein Albumin Blood Type A POSITIVE Antibody Screen NEGATIVE Crossmatch See Detail 12/05/17 21:50 WBC RBC Hgb Hct MCV MCH MCHC RDW Plt Count Seg Neutrophils % Lymphocytes % Monocytes % Eosinophils % Basophils % Absolute Neutrophils Absolute Lymphocytes Absolute Monocytes Absolute Eosinophils Absolute Basophils PT INR APTT Sodium Potassium Chloride Carbon Dioxide Anion Gap BUN Creatinine Est GFR ( Amer) Est GFR (Non-Af Amer) Glucose Calcium Total Bilirubin Direct Bilirubin Neonat Total Bilirubin Neonat Direct Bilirubin Neonat Indirect Bili AST ALT Alkaline Phosphatase CK-MB (CK-2) 0.86 Troponin I < 0.012 Total Protein Albumin Blood Type Antibody Screen Crossmatch 57-year-old male with hypertension presents from home with complaint of rectal bleeding that started 1 day prior to arrival. Patient states that he has had multiple episodes of bleeding with and without bowel movements. He does have associated abdominal cramping and nausea. Upon arrival patient is diaphoretic, hypotensive, pale and very ill appearing. 3 large bore IVs were established. IV fluids initiated. Exam is significant for active rectal bleeding which is bright red. Patient was transfused 2 units of PRBCs during his ED course. Initial hemoglobin is 12 but this is down 3 points from lab work done 1 week ago. I did speak to the patient's truck sales manager who state he does not have hospital privileges and has no preference of where the patient is transferred. Patient and fianc are requesting transfer to [facility]. I did contact the transfer center and spoke to Dr. Sow who has accepted the patient to the PCU. Patient was stabilized. Vital signs stable upon transfer. 12/07/17 07:40 - Vital Signs Vital signs: Temp Pulse Resp BP Pulse Ox 98.0 F 71 17 108/78 98 12/05/17 23:06 12/05/17 23:06 12/05/17 23:40 12/05/17 23:40 12/05/17 23:40 - Laboratory Result Diagrams: 12/05/17 21:04 12/05/17 21:04 Laboratory results interpreted by me: 12/05/17 12/05/17 12/05/17 21:04 21:04 21:14 WBC 12.9 H RBC 3.97 L Hgb 12.2 L Hct 36.0 L RDW 14.2 H Absolute Lymphocytes 5.6 H PT BUN 23 H Alkaline Phosphatase 37 L Total Protein 5.6 L Albumin 3.2 L Crossmatch See Detail 12/05/17 21:50 WBC RBC Hgb Hct RDW Absolute Lymphocytes PT 15.8 H BUN Alkaline Phosphatase Total Protein Albumin Crossmatch Critical Care Note - Critical Care Note Total time excluding time spent on procedures (mins): 40 - minutes of critical care time spent in direct contact evaluating and reevaluating the patient, treating symptoms, reviewing labs and studies and speaking with family and consultants excluding any procedures Discharge - Discharge Clinical Impression: GI bleed Qualifiers: GI bleed type/associated pathology: unspecified gastrointestinal hemorrhage type Qualified Code(s): K92.2 - Gastrointestinal hemorrhage, unspecified Condition: Good Disposition: [facility] Forms: Parent Work Note
[2017-12-05 22:16] LABS: PROTHROMBIN TIME 15.8 SEC (11.4-15.4)
[2017-12-05 22:17] LABS: PARTIAL THROMBOPLASTIN TIME 24.8 SEC (23.5-35.8)
[2017-12-05] MEDS ORDERED: LORAZEPAM INJ 2 MG/1 ML VIAL IV ONE (22:18)
[2017-12-05 22:38] LABS: CREATINE KINASE MB 0.86 ng/mL (<4.55)
[2017-12-05 22:40] LABS: TROPONIN I < 0.012 ng/mL
[2017-12-05 23:45] VITALS: BP 108/78
--- NOTE | 2017-12-06 20:40 | EKG REPORT ---
SEVERITY:- NORMAL ECG - SINUS RHYTHM : Confirmed by: Stephanie Leung MD 06-Dec-2017 20:39:14
== END 2017-12-05 23:50 | disposition short-term general hospital (02) ==
LOC: ER 20:11
DX: K92.2 Gastrointestinal hemorrhage, unspecified (principal); R10.9 Unspecified abdominal pain; R11.0 Nausea; R61 Generalized hyperhidrosis; I10 Essential (primary) hypertension
CPT/HCPCS: 93005; 99291; 96374; 86900; 86901; 36415; 82553; 36430; 86850; 85025; 85610; 85730; 82272; 80053; 84484; 86920; 93010; P9016; J2060; J7030

== ENCOUNTER → 2018-12-31 | Outpatient (CLI) | payer OTHER ==
[2018-12-31 10:09] LABS: ABSOLUTE EOSINOPHILS # (AUTO) 0.1 10^3/uL (0.0-0.6); ABSOLUTE LYMPHOCYTES (AUTO) 1.5 10^3/uL (0.5-4.7); ABSOLUTE MONOCYTES (AUTO) 0.6 10^3/uL (0.1-1.4); ABSOLUTE NEUT (AUTO) 4.8 10^3/uL (1.7-8.2); BASOPHILS % (AUTO) 0.5 % (0-2); EOSINOPHILS % (AUTO) 1.3 % (0-6); HEMATOCRIT 46.4 % (37.9-51.0); HEMOGLOBIN 15.6 g/dL (13.5-17.0); LYMPHOCYTES % (AUTO) 20.8 % (13-45); MEAN CORPUSCULAR HEMOGLOBIN 30.6 pg (27.0-33.4); MEAN CORPUSCULAR HGB CONC 33.6 g/dL (32.0-36.0); MEAN CORPUSCULAR VOLUME 91 fl (80-97); MONOCYTES % (AUTO) 8.7 % (3-13); PLATELET COUNT 125 10^3/uL (150-450); RED CELL DISTRIBUTION WIDTH 14.2 % (11.5-14.0); SEGMENTED NEUTROPHILS % (AUTO) 68.7 % (42-78); TOTAL CELLS COUNTED % (AUTO) 100 %
[2018-12-31 10:36] LABS: ALBUMIN 4.2 g/dL (3.5-5.0); ALKALINE PHOSPHATASE 56 U/L (38-126); ANION GAP 8 (5-19); ASPARTATE AMINO TRANSFERASE 24 U/L (17-59); BILIRUBIN,DIRECT 0.2 mg/dL (0.0-0.4); BILIRUBIN,TOTAL 1.2 mg/dL (0.2-1.3); BLOOD UREA NITROGEN 18 mg/dL (7-20); CALCIUM 9.5 mg/dL (8.4-10.2); CARBON DIOXIDE 29 mmol/L (22-30); CHLORIDE 103 mmol/L (98-107); CHOLESTEROL 159.79 mg/dL (0-200); GLUCOSE 97 mg/dL (75-110); TOTAL PROTEIN 6.7 g/dL (6.3-8.2); TRIGLYCERIDES 60 mg/dL (<150)
[2018-12-31 10:47] LABS: DIRECT LDL 118 mg/dL (<100)
== END ==
LOC: CCC 09:21
DX: R03.0 Elevated blood-pressure reading, without diagnosis of hypertension (principal)
CPT/HCPCS: 36415; 80053; 80061; 83036; 84153; 84443; 85025

== ENCOUNTER 2020-01-14 01:00 | Emergency (ER) | payer SELFPAY ==
[2020-01-14 02:25] LABS: ABSOLUTE LYMPHOCYTES (AUTO) 0.9 10^3/uL (0.5-4.7); ABSOLUTE MONOCYTES (AUTO) 0.6 10^3/uL (0.1-1.4); ABSOLUTE NEUT (AUTO) 15.3 10^3/uL (1.7-8.2); BASOPHILS % (AUTO) 0.2 % (0-2); HEMATOCRIT 52.2 % (37.9-51.0); HEMOGLOBIN 17.3 g/dL (13.5-17.0); LYMPHOCYTES % (AUTO) 5.6 % (13-45); MEAN CORPUSCULAR HEMOGLOBIN 30.2 pg (27.0-33.4); MEAN CORPUSCULAR HGB CONC 33.1 g/dL (32.0-36.0); MEAN CORPUSCULAR VOLUME 91 fl (80-97); MONOCYTES % (AUTO) 3.6 % (3-13); PLATELET COUNT 188 10^3/uL (150-450); RED BLOOD COUNT 5.72 10^6/uL (4.35-5.55); RED CELL DISTRIBUTION WIDTH 13.8 % (11.5-14.0); SEGMENTED NEUTROPHILS % (AUTO) 90.6 % (42-78); TOTAL CELLS COUNTED % (AUTO) 100 %; WHITE BLOOD COUNT 16.8 10^3/uL (4.0-10.5)
[2020-01-14] MEDS ORDERED: ONDANSETRON HCL INJ/PF 4 MG/2 ML SDV IV ONE (02:27)
[2020-01-14] MEDS ORDERED: MORPHINE SULFATE 10 MG/ML INJ IV ONE ×2 (02:27→04:11)
[2020-01-14 02:36] LABS: ALBUMIN 4.9 g/dL (3.5-5.0); ALKALINE PHOSPHATASE 77 U/L (38-126); BILIRUBIN,TOTAL 2.1 mg/dL (0.2-1.3); BLOOD UREA NITROGEN 14 mg/dL (7-20); CALCIUM 10.4 mg/dL (8.4-10.2); GLUCOSE 162 mg/dL (75-110); POTASSIUM 4.1 mmol/L (3.6-5.0); TOTAL PROTEIN 8.1 g/dL (6.3-8.2)
[2020-01-14 02:41] LABS: CARBON DIOXIDE 19 mmol/L (22-30); CHLORIDE 102 mmol/L (98-107)
[2020-01-14 02:43] LABS: ASPARTATE AMINO TRANSFERASE 35 U/L (17-59)
--- NOTE | 2020-01-14 02:43 | ER Document Report ---
ED GI/ - General Chief Complaint: Breathing Difficulty Stated Complaint: DIFFICULTY BREATHING,ABDOMINAL PAIN Time Seen by Provider: 01/14/20 02:17 Primary Care Provider: [facility] [NO LOCAL MD] - Follow up as needed DEEDEE GIRON MD [ACTIVE STAFF] - Follow up as needed Notes: CHIEF COMPLAINT: Nausea vomiting and abdominal pain HPI: 59-year-old male who states he does not drink alcohol presenting for evaluation of nausea vomiting with abdominal pain that began around 5 PM last night. No cough no chest pain no shortness of breath no fever. Has had multiple episodes of vomiting. Denies history of pancreatitis. Patient denies bloody stools or dark tarry stools ROS: See HPI - all other systems were reviewed and are otherwise negative Constitutional: no fever Eyes: no drainage, no blurred vision ENT: no runny nose, no sore throat Cardiovascular: no chest pain Resp: no SOB, no cough GI: + vomiting, no diarrhea, + abdominal pain : no dysuria Integumentary: no rash Allergy: no hives Musculoskeletal: no extremity pain or swelling Neurological: no numbness/tingling, no weakness MEDICATIONS: I agree with the patient medications as charted by the RN. ALLERGIES: I agree with the allergies as charted by the RN. PAST MEDICAL HISTORY/PAST SURGICAL HISTORY: Reviewed and agree as charted by RN. SOCIAL HISTORY: Reviewed and agree as charted by RN. FAMILY HISTORY: No significant familial comorbid conditions directly related to patient complaint EXAM: Reviewed vital signs as charted by RN. CONSTITUTIONAL: Alert and oriented and responds appropriately to questions. Well-appearing; well-nourished, mild distress secondary to discomfort HEAD: Normocephalic; atraumatic EYES: PERRL; Conjunctivae clear, sclerae non-icteric ENT: normal nose; no rhinorrhea; moist mucous membranes; pharynx without lesions noted, no uvula edema or deviation, no tonsillar hypertrophy, phonation normal NECK: Supple without meningismus; non-tender; no cervical lymphadenopathy, no masses CARD: RRR; no murmurs, no clicks, no rubs, no gallops; symmetric distal pulses RESP: Normal chest excursion without splinting or tachypnea; breath sounds clear and equal bilaterally; no wheezes, no rhonchi, no rales, pulse oximetry 97% on room air not hypoxic ABD/GI: Normal bowel sounds; non-distended; soft, mild periumbilical tenderness on palpation, no rebound, no guarding; no palpable organomegaly or masses. BACK: The back appears normal and is non-tender to palpation, there is no CVA tenderness EXT: Normal ROM in all joints; non-tender to palpation; no cyanosis, no effusions, no edema SKIN: Normal color for age and race; warm; dry; good turgor; no acute lesions noted NEURO: Moves all extremities equally; Motor and sensory function intact PSYCH: The patient's mood and manner are appropriate. Grooming and personal hygiene are appropriate. MDM: 59-year-old male presenting with mid abdominal pain with multiple episodes of vomiting. Denies alcohol use. Denies dark tarry stools. Will obtain screening labs and plan for CT imaging to evaluate for surgical or infectious process TRAVEL OUTSIDE OF THE [place] IN LAST 30 DAYS: No - Related Data Allergies/Adverse Reactions: pantoprazole sodium [From Protonix] Adverse Reaction (Intermediate, Verified 12/05/17 22:32) Migraine Past Medical History - Social History Smoking Status: Unknown if Ever Smoked Family History: Reviewed & Not Pertinent, Hypertension - Past Medical History Cardiac Medical History: Reports: Hx Hypertension Pulmonary Medical History: Denies: Hx Tuberculosis Neurological Medical History: Denies: Hx Seizures Renal/ Medical History: Denies: Hx Peritoneal Dialysis Psychiatric Medical History: Denies: Hx Depression Past Surgical History: Reports: Hx Orthopedic Surgery - right hand, left knee - Immunizations Hx Diphtheria, Pertussis, Tetanus Vaccination: Yes Physical Exam - Vital signs Vitals: Pulse Resp BP Pulse Ox 96 16 131/83 H 98 01/14/20 01:20 01/14/20 01:20 01/14/20 01:20 01/14/20 01:20 Course - Re-evaluation Re-evalutation: 01/14/20 04:19 CT shows diverticulitis of the descending colon, no abscess. Discussed at length with the patient. Placed him on Cipro Flagyl, pain and nausea medicine refer to GI with return instructions discussed - Vital Signs Vital signs: Temp Pulse Resp BP Pulse Ox 98.3 F 96 16 131/83 H 98 01/14/20 01:26 01/14/20 01:20 01/14/20 01:20 01/14/20 01:20 01/14/20 02:16 - Laboratory Result Diagrams: 01/14/20 02:09 01/14/20 02:09 Laboratory results interpreted by me: 01/14/20 01/14/20 02:09 02:09 WBC 16.8 H RBC 5.72 H Hgb 17.3 H Hct 52.2 H Lymph % (Auto) 5.6 L Absolute Neuts (auto) 15.3 H Seg Neutrophils % 90.6 H Carbon Dioxide 19 L Anion Gap 21 H Glucose 162 H Calcium 10.4 H Total Bilirubin 2.1 H Discharge - Discharge Clinical Impression: Acute abdominal pain, Acute diverticulitis Condition: Stable Disposition: HOME, SELF-CARE Admitting Provider: Carmina (Hospitalist) Additional Instructions: Take the medications as prescribed no driving if taking narcotics for pain. It was noted that you have diverticulitis of the intestines which is likely causing her pain. Follow-up with gastroenterology for further evaluation and treatment call for appointment. If you have worsening or uncontrolled pain or develop fever greater than 101 return for reevaluation or symptoms Prescriptions: Ciprofloxacin HCl [Cipro 500 mg Tablet] 500 mg PO BID #20 tablet Metronidazole [Flagyl 500 mg Tablet] 500 mg PO TID #21 tablet Oxycodone HCl/Acetaminophen [Percocet 5-325 mg Tablet] 1 tab PO Q4H PRN #15 tab PRN Reason: Ondansetron [Zofran Odt 4 mg Tablet] 1 - 2 tab PO Q4H PRN #15 tab.rapdis PRN Reason: For Nausea/Vomiting [facility] [NO [facility]AL MD] - Follow up as needed DEEDEE GIRON MD [ACTIVE STAFF] - Follow up as needed
[2020-01-14 02:44] LABS: ANION GAP 21 (5-19)
--- NOTE | 2020-01-14 03:33 | RADIOLOGY REPORT (SQ) ---
EXAM DESCRIPTION: XR CHEST 1 VIEW COMPLETED DATE/TME: 01/14/2020 02:16 CLINICAL HISTORY: 59 years, Male, sob COMPARISON: January 14, 2014 NUMBER OF VIEWS: 1 TECHNIQUE: Portable AP upright view the chest was obtained at 2:32 AM. LIMITATIONS: None. FINDINGS: The heart size is normal. Lungs appear clear. There is no evidence of pleural effusion or pneumothorax. IMPRESSION: No acute abnormality as above. copyright 2010 [employer]- All Rights Reserved
--- NOTE | 2020-01-14 04:07 | RADIOLOGY REPORT (SQ) ---
CT ABDOMEN AND PELVIS WITH INTRAVENOUS CONTRAST: 01/14/2020 3:02 AM CDT HISTORY: 79-year old with mid abdominal pain. COMPARISON: None available TECHNIQUE: Axial contiguous images were obtained from the lung bases to the proximal femurs with intravenous intravenous contrast administered. Sagittal and coronal reconstructions were also obtained and reviewed. This exam was performed according to our departmental dose-optimization program, which includes automated exposure control, adjustment of the mA and/or KV according to the patient's size and/or use of iterative reconstruction technique. FINDINGS: No focal consolidative airspace opacities are seen. No discrete pleural effusions are seen. The visualized hepatic parenchyma is unremarkable. There are small hypodense lesions within the liver which are mostly too small adequately characterize. No focal enhancing lesion is seen. The gallbladder demonstrates no evidence of calcified gallstones. The spleen and pancreas are normal in contour. The bilateral adrenal glands appear unremarkable. Both kidneys demonstrate no evidence of hydronephrosis. There is a small hypodense lesion within the left kidney which most likely represents a cyst. There is nonspecific stranding noted around both kidneys. No discrete renal or ureteral calculi are seen. The urinary bladder is mildly distended, and appears grossly unremarkable. The stomach is moderately distended. The small bowel loops appear unremarkable. There are multiple colonic diverticula noted. There is inflammatory stranding noted around the descending colon which may reflect diverticulitis or colitis. Most of the colon is not well distended. The appendix appears unremarkable. There is no evidence of pneumoperitoneum or free fluid. The aorta and IVC appear normal in size. There is moderate atherosclerotic calcification of the aorta. No significantly enlarged lymph nodes are seen in the abdomen or pelvis. Review of the bone show no evidence of any suspicious lytic or blastic lesions. There are multilevel disc osteophytes present. IMPRESSION: There are multiple colonic diverticula are seen. There is some inflammatory stranding and mucosal thickening around the descending colon suggesting colitis or diverticulitis.
[2020-01-14] MEDS ORDERED: METRONIDAZOLE 500 MG TABLET PO ONE (04:11)
[2020-01-14] MEDS ORDERED: CIPROFLOXACIN HCL 500 MG TABLET PO ONE (04:11)
[2020-01-14 04:57] VITALS: BP 134/77
--- NOTE | 2020-01-15 09:49 | EKG REPORT ---
SEVERITY:- ABNORMAL ECG - SINUS RHYTHM BIATRIAL ABNORMALITIES LEFT VENTRICULAR HYPERTROPHY PROLONGED QT INTERVAL : Confirmed by: Blu Zavala 15-Jan-2020 09:49:01
== END 2020-01-14 04:56 | disposition home or self-care (01) ==
LOC: ER 01:00
DX: K57.32 Diverticulitis of large intestine without perforation or abscess without bleeding (principal); R11.2 Nausea with vomiting, unspecified; R10.815 Periumbilic abdominal tenderness; I10 Essential (primary) hypertension; R10.9 Unspecified abdominal pain
CPT/HCPCS: 93005; 96376; 99282; 96374; 96375; 36415; 80307; 83690; 85025; 80053; 71045; 74177; 93010; J2270; J2405